=== PATIENT | male | born 1990 | race Caucasian/White ===

== ENCOUNTER 2016-12-22 11:13 | Day surgery (SDC) | payer BC ==
[2016-12-22] VITALS (12 sets, daily range): BP systolic 99–128; BP diastolic 54–81; PULSE 52–65; TEMP 16
[~2016-12-22] VITALS: Ht 193.2 cm; Wt 143.0 kg
[~2016-12-22 11:13] MED LIST: ALEVE 220MG220 MG PO; NORCO 325 MG-7.1 TAB PO; PRILOSEC 20MG20 MG PO; PRINIVIL10 MG PO; PROZAC 20MG20 MG PO
[2016-12-22] MEDS ORDERED: LEVBID0.375 MG PO (11:47)
[2016-12-22] MEDS ORDERED: ZOLOFT 100MG100 MG PO (11:49)
[2016-12-22] MEDS ORDERED: CLARITIN 1010 MG/TAB PO (11:50)
[2016-12-22] MEDS ORDERED: ASPIRIN E.C. 8181 MG PO (11:51)
[2016-12-22 11:55] LABS: INR 1.1 (0.8-3.0); PROTHROMBIN TIME 11.9 SECONDS (9.7-12.8)
[2016-12-22 11:56] LABS: HEMOGLOBIN 15.5 g/dl (13.5-18.0); MEAN CELL VOLUME 88 fl (80.0-100.0); MEAN CORPUSCULAR HEMOGLOBIN 30 pg (27.0-31.0); MEAN CORPUSCULAR HGB CONC 34 g/dl (33.0-37.0); MEAN PLATELET VOLUME 9.5 fl (7.4-10.4); PLATELET COUNT 189 K/mm3 (130-400); RED BLOOD COUNT 5.12 M/mm3 (4.20-5.60); REDCELL DISTRIBUTION WIDTH-CV 12.4 % (11.5-14.5); WHITE BLOOD COUNT 6.3 K/mm3 (4.8-10.8)
[2016-12-22 12:02] LABS: CALCIUM 9.3 mg/dL (8.4-10.2); CREATININE, serum 1.12 mg/dL (0.66-1.25)
== END 2016-12-22 18:58 | disposition home or self-care (01) ==
LOC: COL.CAR 11:13
PROVIDERS: Internal Medicine Cardiovascular Disease
DX: R94.39 Abnormal result of other cardiovascular function study (principal); R07.9 Chest pain, unspecified; I10 Essential (primary) hypertension; I42.9 Cardiomyopathy, unspecified; E80.4 Gilbert syndrome; K21.0 Gastro-esophageal reflux disease with esophagitis; F42.9 Obsessive-compulsive disorder, unspecified; E79.0 Hyperuricemia without signs of inflammatory arthritis and tophaceous disease; E66.09 Other obesity due to excess calories; Z68.37 Body mass index [BMI] 37.0-37.9, adult; Z86.69 Personal history of other diseases of the nervous system and sense organs; Z82.49 Family history of ischemic heart disease and other diseases of the circulatory system; Z83.42 Family history of familial hypercholesterolemia
CPT/HCPCS: C1760; J2250; J3010; Q9967

== ENCOUNTER 2019-11-18 14:30 | Inpatient (IN) | payer BC ==
[~2019-11-18] VITALS: Ht 193 cm; Wt 129.7 kg
[~2019-11-18 14:30] MED LIST changes: +ASPIRIN E.C. 8181 MG PO; +CLARITIN 1010 MG/TAB PO; +LEVBID0.375 MG PO; +ZOLOFT 100MG100 MG PO
[2019-11-18 15:24] VITALS: BP 152/97; PULSE 61; TEMP 97.2
[2019-11-18] MEDS ORDERED: ZESTRIL 10MG10 MG PO (15:49)
[2019-11-18] MEDS ORDERED: PROTONIX 40MG T40 MG PO (15:50)
[2019-11-18] MEDS ORDERED: BUSPAR10 MG PO (15:50)
[2019-11-18] MEDS ORDERED: BRINTELLIX20 PO (15:51)
[2019-11-18] MEDS ORDERED: ZYRTEC 10MG10 MG PO (15:51)
[2019-11-18] MEDS ORDERED: NASACORT OTC NS (15:52)
--- NOTE | 2019-11-18 16:26 | NUR ---
Patient admitted via EMS cart to room [address] Lopez notified at 1345 of admission. Assessment completed, see forms. Abdomen soft, non tender, non distended. Bowel sounds active. +Flatus. Bowel movement this a.m. No c/o nausea or vomiting. No other c/o at this time.
[2019-11-18 18:57] LABS: BASO % 0.4 % (0.0-2.0); EOS % 0.5 % (0-4.0); GRAN # 5.2 (1.4-6.5); GRAN % 63.4 % (42.2-75.2); HEMOGLOBIN 15.4 g/dl (13.5-18.0); LYMPH # 2.3 (1.2-3.4); LYMPH % 27.9 % (20.0-51.0); MEAN CELL VOLUME 86 fl (80.0-100.0); MEAN CORPUSCULAR HEMOGLOBIN 30 pg (27.0-31.0); MEAN CORPUSCULAR HGB CONC 34 g/dl (33.0-37.0); MONO # 0.6 (0.1-0.6); MONO % 7.4 % (1.7-9.3); PLATELET COUNT 204 K/mm3 (130-400); RED BLOOD COUNT 5.21 M/mm3 (4.20-5.60); REDCELL DISTRIBUTION WIDTH-CV 11.9 % (11.5-14.5)
[2019-11-18 19:00] LABS: ALBUMIN 4.3 gm/dL (3.5-5.0); BILIRUBIN,TOTAL 3.3 mg/dL (0.0-1.0); CALCIUM 9.1 mg/dL (8.4-10.2); CREATININE, serum 1.16 (0.66-1.25); MAGNESIUM 2.2 mg/dL (1.6-2.3); POTASSIUM 3.5 mmol/L (3.4-5.0); TOTAL PROTEIN 7.7 gm/dL (6.4-8.2)
[2019-11-18 19:30] VITALS: BP 133/88; PULSE 73; TEMP 98.1
--- NOTE | 2019-11-18 21:00 | NUR ---
PT INDEPENDENT IN THE ROOM. DENIES PAIN OR NAUSEA AT THIS TIME. IVF INFUSING TO LEFT HAND WITHOUT REDNESS OR SWELLING. ICE CHIPS PROVIDED. WILL BE NPO AFTER MIDNIGHT FOR EGD AT 0900.
[2019-11-18 23:51] VITALS: BP 141/94; PULSE 80; TEMP 97.7
--- NOTE | 2019-11-18 23:55 | NUR ---
Signs consent for EGD in AM. Is NPO.
[2019-11-19 04:26] VITALS: BP 144/86; PULSE 75; TEMP 97.5
--- NOTE | 2019-11-19 05:25 | NUR ---
Pt in bed, denies needs at this time.
[2019-11-19 07:37] VITALS: BP 155/83; PULSE 63; TEMP 98.1
[2019-11-19 08:02] LABS: BASO % 0.6 % (0.0-2.0); EOS # 0.1 (0.0-0.7); EOS % 1.4 % (0-4.0); GRAN # 3.9 (1.4-6.5); GRAN % 55.9 % (42.2-75.2); HEMATOCRIT 45.3 % (42.0-52.0); HEMOGLOBIN 15.8 g/dl (13.5-18.0); LYMPH # 2.3 (1.2-3.4); LYMPH % 32.7 % (20.0-51.0); MEAN CELL VOLUME 87 fl (80.0-100.0); MEAN CORPUSCULAR HEMOGLOBIN 30 pg (27.0-31.0); MEAN CORPUSCULAR HGB CONC 35 g/dl (33.0-37.0); MONO # 0.6 (0.1-0.6); PLATELET COUNT 204 K/mm3 (130-400); RED BLOOD COUNT 5.21 M/mm3 (4.20-5.60); REDCELL DISTRIBUTION WIDTH-CV 11.9 % (11.5-14.5)
[2019-11-19 08:10] LABS: ALBUMIN 4.2 gm/dL (3.5-5.0); BILIRUBIN,TOTAL 3.3 mg/dL (0.0-1.0); CALCIUM 9.1 mg/dL (8.4-10.2); CREATININE, serum 1.17 (0.66-1.25); MAGNESIUM 2.2 mg/dL (1.6-2.3); POTASSIUM 3.7 mmol/L (3.4-5.0); TOTAL PROTEIN 7.5 gm/dL (6.4-8.2)
--- NOTE | 2019-11-19 09:05 | NUR ---
PATIENT GOING DOWN TO ENDO VIA BED
[2019-11-19 09:35] VITALS: BP 153/85; PULSE 63; TEMP 97.5
--- NOTE | 2019-11-19 09:35 | NUR ---
PATIENT BACK IN ROOM 348 POST EGD, NO DIALATION PERFORMED, NO SPRAY USED. PATIENT IS ORIENTED BUT DROWSY. VSS. NO C/O PAIN. PATIENT WAS ABLE TO SWALLOW HOME DOSE OF LISINOPRIL. PATIENT RESTING UP IN BED WITH NO NEEDS. CALL LIGHT IN REACH.
--- NOTE | 2019-11-19 15:00 | NUR ---
PATIENT MOVING AROUND ROOM INDEPENDENTLY. NO NEEDS
[2019-11-19 15:52] VITALS: BP 144/94; PULSE 99; TEMP 97.7
[2019-11-19 20:38] VITALS: BP 125/80; PULSE 97; TEMP 98.1
--- NOTE | 2019-11-19 20:52 | NUR ---
PT UNABLE TO KEEP CLEAR LIQUIDS DOWN, EMESIS IN BASIN. REPORTS UPPER ESOPHAGUS BURNING. MEDICATED WITH TUMS AT THIS TIME. IVF INFUSING TO LEFT HAND WITHOUT REDNESS OR SWELLING. INDEPENDENT IN ROOM.
[2019-11-20 01:28] VITALS: BP 153/88; PULSE 65; TEMP 97.7
[2019-11-20 04:49] VITALS: BP 148/79; PULSE 52; TEMP 97.6
--- NOTE | 2019-11-20 05:50 | NUR ---
IS NPO FOR GASTRIC EMPTYING STUDY TODAY. PT OFFERS NO CONCERNS AT THIS TIME.
--- NOTE | 2019-11-20 07:46 | NUR ---
Lying in bed with eyes open. Minimal pain in abd at this time. Radiology here to take patient for gastric emptying study via wheel chair.
[2019-11-20 07:47] VITALS: BP 141/86; PULSE 65; TEMP 98.1
--- NOTE | 2019-11-20 10:07 | NUR ---
Patient back from test via wheelchair.
--- NOTE | 2019-11-20 10:54 | NUR ---
[facility] met with the patient to complete initial intake. The patient lives in [place] with his . The patient is independent with ADLs and has a CPAP. He states he does not use it as often as he should. The patient receives CPAP supplies and medications from [facility] in [place]. The patient does not have advanced directives in the EMR and he was not interested in a DPOA-HC form. The patient plans to return home at discharge with his providing transportation.
--- NOTE | 2019-11-20 11:32 | NUR ---
First visit from the manager services. No needs right now.
--- NOTE | 2019-11-20 12:27 | NUR ---
Lying in bed watching TV. Denies pain or any needs at this time.
[2019-11-20 12:52] VITALS: BP 135/90; PULSE 73; TEMP 98.1
--- NOTE | 2019-11-20 13:40 | NUR ---
Sitting up in recliner with eyes open watching TV. Patient says that he has tolerated his lunch okay, having a lot of belching but denies nausea or vomiting. Patient denies further needs at this time.
[2019-11-20 15:02] VITALS: BP 153/88; PULSE 82; TEMP 97.9
--- NOTE | 2019-11-20 15:26 | NUR ---
Lying in bed watching TV. Denies nausea or vomiting. Patient says that he has tolerated the bland diet good. Initially had a lot of belching but that has subsided. Patient denies needs at this time.
--- NOTE | 2019-11-20 16:56 | NUR ---
Lying in bed with eyes open watching TV and talking on cell phone. Patient aware he will be staying tonight and they will reassess in the morning. IV fluids dc'd at this time. Patient denies further needs.
--- NOTE | 2019-11-20 17:52 | NUR ---
Sitting on edge of bed. Says he feels like his dinner is able to stay down, having the belching. Tums provided. Patient denies further needs at this time.
--- NOTE | 2019-11-20 19:00 | NUR ---
Received report from KENNETH Crowder. pt currently sitting up in his chair and has call light within reach.
[2019-11-20 20:45] VITALS: BP 142/85; PULSE 56; TEMP 98.3
--- NOTE | 2019-11-21 | NUR ---
Pt sleeping but easy to arouse. Pt stated that he has no pain or nausea at this time. He has his call light within reach.
[2019-11-21 00:58] VITALS: BP 126/77; PULSE 63; TEMP 97.4
[2019-11-21 03:15] VITALS: BP 135/79; PULSE 50; TEMP 97.7
--- NOTE | 2019-11-21 05:55 | NUR ---
Pt has slept well during the night pt has had no complaints of nausea or pain. Pt has his call light within reach.
--- NOTE | 2019-11-21 07:03 | NUR ---
Reported off to KENNETH Chavez. Pt has his call light within reach.
[2019-11-21 07:07] LABS: ALBUMIN 4.3 gm/dL (3.5-5.0); BILIRUBIN,DIRECT 0.2 mg/dL (0.0-0.4); BILIRUBIN,TOTAL 2.2 mg/dL (0.0-1.0); TOTAL PROTEIN 7.6 gm/dL (6.4-8.2)
[2019-11-21 07:08] VITALS: BP 143/87; PULSE 88; TEMP 98.2
--- NOTE | 2019-11-21 08:26 | NUR ---
Dr Palomino here to see patient.
--- NOTE | 2019-11-21 10:00 | NUR ---
Patient alert and oriented, answers questions appropriately. Abdomen soft, non tender, non distended. Bowel sounds active x4 quads. +Flatus. No c/o at this time.
[2019-11-21 12:21] VITALS: BP 153/83; PULSE 77; TEMP 97.9
[2019-11-21] MEDS ORDERED: ACIDOPHILIS PO (13:03)
--- NOTE | 2019-11-21 14:08 | NUR ---
Discharge instructions reviewed with patient, verbalized understanding. Discharged ambulatory to auto/home with family at 1408.
== END 2019-11-21 14:08 | disposition home or self-care (01) | DRG 392 ==
LOC: SURG 14:30
PROVIDERS: Internal Medicine Gastroenterology; Nurse Practitioner Family; ADMIT Hospitalist
PROC: 0DJ08ZZ Inspection of Upper Intestinal Tract, Via Natural or Artificial Opening Endoscopic (ICD-10-PCS; principal; 2019-11-19 09:00)
DX: K57.32 Diverticulitis of large intestine without perforation or abscess without bleeding (principal); K21.9 Gastro-esophageal reflux disease without esophagitis; K44.9 Diaphragmatic hernia without obstruction or gangrene; K58.9 Irritable bowel syndrome, unspecified; F41.9 Anxiety disorder, unspecified; R11.10 Vomiting, unspecified; E80.6 Other disorders of bilirubin metabolism; F32.9 Major depressive disorder, single episode, unspecified; Z79.82 Long term (current) use of aspirin
CPT/HCPCS: 99222-AI; 99231-AI; 99239; A9541; C9113; J2543; J2704; J7030

== ENCOUNTER 2021-02-13 14:47 | Inpatient (IN) | payer BC ==
[~2021-02-13] VITALS: Ht 193 cm; Wt 138.7 kg
[~2021-02-13 14:47] MED LIST changes: +ACIDOPHILIS PO; +BRINTELLIX20 PO; +BUSPAR10 MG PO; +NASACORT OTC NS; +PROTONIX 40MG T40 MG PO; +ZESTRIL 10MG10 MG PO; +ZYRTEC 10MG10 MG PO
[2021-03-10] VITALS (11 sets, daily range): BP systolic 124–145; BP diastolic 74–101; PULSE 79–100; TEMP 97.5–98.7
[2021-03-10] MEDS ORDERED: BUSPAR DIVIDOSE15 MG PO (07:54)
[2021-03-10] MEDS ORDERED: KLONOPIN 0.5MG0.5 MG PO (07:55)
[2021-03-10] MEDS ORDERED: PRINIVIL10 MG PO (07:55)
[2021-03-10] MEDS ORDERED: PROTONIX 40MG T40 MG PO (07:56)
[2021-03-10] MEDS ORDERED: BRINTELLIX10 PO (07:57)
--- NOTE | 2021-03-10 14:30 | NUR ---
Pt recently arrived to the floor from [place]. He is alert and oriented although drowsy. Has some pain complaints to his abdomen, but states it is tolerable. Oriented pt to his room. Call light within reach
--- NOTE | 2021-03-10 15:56 | NUR ---
Pt more awake now, but still drowsy. Schedule Tylenol given as well as ice water. Encouraged him to have chewing gum at bedside. PT denies other needs, call light within reach
--- NOTE | 2021-03-10 17:30 | NUR ---
Pt more awake at this time. Oriented him to his room and updated him on his plan of care. Pt reported that his pain is increasing but that he does not think he could keep any oral pain medication down. Order for Morphine 4mg, 2mg given which pt stated did work for him. [place] pt was too drowsy to give full dose.
--- NOTE | 2021-03-10 21:10 | NUR ---
PT IS IN BED, STATES THAT HE WOULD LIKE TO TRY USE BATHROOM ET HAVE BM. PT IS ASSITED WITH SBA OF 2 TO BS. GAITBELT USED. PT'S GAIT IS STEADY, DENIES ANY DIZZINESS. PT HAS GAS BUT IS UNABLE TO HAVE BM, TRANSFERRED BACK TO BED. STATES THAT HE HAS NO APPETITE @ THIS TIME, DENIES OTHER NEEDS. CALL LIGHT WITHIN REACH.
[2021-03-11 04:17] VITALS: BP 143/87; PULSE 84; TEMP 98.4
--- NOTE | 2021-03-11 06:05 | NUR ---
C/O pain to abdomen, rating pain 7/10 on pain scale described as sharp pains. Oxycodone given per dr order. Did get OOB x1 over night. Attempted to have BM. DId have +flatus. Chewing gum/no straws. Has not tolerated much PO. Did take in approx 240mls of water. Plan of care discussed for AM-clear liquid diet-up out of bed to ambulate. Denies needs. Call light in reach. Will monitor.
[2021-03-11 07:59] VITALS: BP 126/79; PULSE 84; TEMP 98.4
[2021-03-11 08:14] LABS: HEMATOCRIT 43.6 % (42.0-52.0); HEMOGLOBIN 14.9 g/dl (13.5-18.0)
[2021-03-11 08:17] LABS: CALCIUM 8.5 mg/dL (8.4-10.2); CREATININE, serum 1.16 (0.66-1.25); POTASSIUM 3.3 mmol/L (3.4-5.0)
--- NOTE | 2021-03-11 09:30 | NUR ---
Patient alert and oriented, answers questions appropriately. See assessment. Abdomen soft, tender, non distended. Bowel sounds active x4. No flatus. Lap sites to abdomen with edges well approximated, no redness or drainage noted. Ward catheter patent, draining clear yellow urine. ERAS protocol reviewed. No c/o at this time.
[2021-03-11 12:00] VITALS: BP 129/76; PULSE 90; TEMP 97.4
--- NOTE | 2021-03-11 12:36 | NUR ---
First visit from the sign artist. No needs right now.
--- NOTE | 2021-03-11 14:19 | NUR ---
Sample Body Builder met with patient to discuss discharge planning. Patient lives in [place] with his , Kathy (ph#[phone]) and is employed by [employer]. Patient sees Dr. Son for primary care and obtains medications from [facility] in [place] with no difficulties. Patient uses a CPAP and no other DME. Patient is independent with ADLS and plans to return home upon discharge. Patient does not have Advance Directives and is not interested in completing them at this time. Discharge Plan: Home
[2021-03-11 15:11] VITALS: BP 125/72; PULSE 75; TEMP 99
--- NOTE | 2021-03-11 17:12 | NUR ---
Ward catheter removed per Drs order, chula care completed.
--- NOTE | 2021-03-11 19:00 | NUR ---
Bedside shift report received, assumed care for reclamation engineer. A&Ox3. Denies nausea/shortness of breath. VS have been stable. Tolerating current diet. Voiding without difficulty post casiano removal. Did c/o of some heart burn but PM dose of Protonix helped. Has been independent in the room. Plan of care discussed for this shift to include medications/calling for pain meds as needed/ambulation/calling for questions/concerns. Verbalizes understanding. Denies needs. Call light in reach. Will monitor.
[2021-03-11 20:07] VITALS: BP 128/65; PULSE 69; TEMP 97.5
[2021-03-12 00:51] VITALS: BP 123/81; PULSE 76; TEMP 98.4
--- NOTE | 2021-03-12 02:00 | NUR ---
PT RESTING IN BED QUIETLY. SCDS ARE ON. STATES PAIN IS MANAGEABLE @ THIS TIME, 09/03. IV FLUIDS INFUSING. PT DENIES ANY NEEDS. CALL LIGHT WITHIN REACH.
[2021-03-12 04:20] VITALS: BP 124/65; PULSE 68; TEMP 98.5
--- NOTE | 2021-03-12 06:17 | NUR ---
PETRA INTejeffy. PT TOLERATING PO INTAKE WELL.
[2021-03-12 07:12] VITALS: BP 139/83; PULSE 68; TEMP 97.4
[2021-03-12] MEDS ORDERED: NORCO 325 MG-7.1 TAB PO (07:24)
--- NOTE | 2021-03-12 09:30 | NUR ---
Patient alert and oriented, answers questions appropriately. See assessment. Abdomen soft, non distended, tender. Bowel sounds active x4 quads. +Flatus. +Bowel movement. Lap sites to abdomen with no redness or drainage noted, edges well approximated. ERAS protocol reviewed with patient. Voiding adequate amounts. No c/o at this time.
--- NOTE | 2021-03-12 11:33 | NUR ---
Discharge instructions reviewed with patient and spouse, verbalized understanding. Discharged ambulatory to auto/home with spouse at 1120.
== END 2021-03-12 11:20 | disposition home or self-care (01) | DRG 331 ==
LOC: SURG 02-24 07:30 → INPTSU 03-10 07:12 → SURG 03-10 07:30
PROVIDERS: ADMIT Surgery
PROC: 0DTG4ZZ Resection of Left Large Intestine, Percutaneous Endoscopic Approach (ICD-10-PCS; principal; 2021-03-10 09:30)
DX: K57.32 Diverticulitis of large intestine without perforation or abscess without bleeding (principal); I10 Essential (primary) hypertension; K21.9 Gastro-esophageal reflux disease without esophagitis; K22.70 Barrett's esophagus without dysplasia; G47.33 Obstructive sleep apnea (adult) (pediatric); F41.9 Anxiety disorder, unspecified; F42.9 Obsessive-compulsive disorder, unspecified; Z86.16 Personal history of COVID-19; Z88.8 Allergy status to other drugs, medicaments and biological substances
CPT/HCPCS: A4314; A9284; J0330; J0690; J1650; J2250; J2270; J2550; J2704; J2765; J2795; J3010; J7120